=== PATIENT | female | born 1990 | race African-American/Black ===

== ENCOUNTER 2017-05-19 12:14 | Emergency (ER) | payer OTHER ==
[~2017-05-19] VITALS: Ht 170.2 cm; Wt 57.5 kg
[~2017-05-19 12:14] MED LIST: BACTRIM,SEPT1 TABLET PO; FLEXERIL10 MG PO; MOTRIN600 MG PO; NORCO 5/3251 TABLET PO; VALTREX1000 MG PO
[2017-05-19 12:59] LABS: HEMATOCRIT 38.3 % (36.0-46.0); MCH 31.7 PG (29.0-34.0); MCHC 34.5 G/DL (30.0-36.0); MCV 92.1 FL (83-99); PLATELET COUNT 164 K/uL (156-360); RBC DIS.WIDTH-CV 11.6 % (11.8-14.6); RBC DIS.WIDTH-SD 39.4 % (39-53); RED BLOOD COUNT 4.16 M/uL (3.80-5.20); WHITE BLOOD COUNT 7.1 K/uL (4.1-10.2)
[2017-05-19 13:09] LABS: CHLORIDE 105 mEq/L (99-109); POTASSIUM 4.3 mEq/L (3.7-5.4); SODIUM 138 mEq/L (136-147)
[2017-05-19 13:11] LABS: GLUCOSE 84 mg/dL (70-99)
[2017-05-19 13:12] LABS: ANION GAP 9 MEQ/L (2-14)
[2017-05-19 13:14] LABS: SERUM ETHYL ALCOHOL < 10 mg/dL
[2017-05-19 13:15] LABS: GFR ESTIMATE (CALCULATED) > 59 mL/min/; UREA NITROGEN (BUN) 9 mg/dL (9-23)
[2017-05-19 16:16] LABS: ADD MEDTOX COMMENT Y; AMPHETAMINE NEGATIVE (500 ng/mL); BARBITURATES NEGATIVE (200 ng/mL); BENZODIAZEPINES NEGATIVE (150 ng/mL); COCAINE NEGATIVE (150 ng/mL); INTERNAL CONTROLS VALID? YES; METHADONE NEGATIVE (200 ng/mL); METHAMPHETAMINE NEGATIVE (500 ng/mL); OPIATES (MORPHINE) NEGATIVE (100 ng/mL); OXYCODONE NEGATIVE (100 ng/mL); PHENCYCLIDINE NEGATIVE (25 ng/mL); PROPOXYPHENE NEGATIVE (300 ng/mL); THC CANNABINOIDS PRESUMPTIVE POSITIVE (50 ng/mL); TRICYCLIC ANTIDEPRESSANTS NEGATIVE (300 ng/mL)
[2017-05-19 16:39] VITALS: BP 116/77
== END 2017-05-19 16:39 | disposition home or self-care (01) ==
LOC: EME 12:14
DX: F41.1 Generalized anxiety disorder (principal); F12.10 Cannabis abuse, uncomplicated; F43.23 Adjustment disorder with mixed anxiety and depressed mood; R51 Headache; M54.9 Dorsalgia, unspecified; R07.9 Chest pain, unspecified; R20.0 Anesthesia of skin; Z85.41 Personal history of malignant neoplasm of cervix uteri; Z87.891 Personal history of nicotine dependence
CPT/HCPCS: 80048; 84999; 85027; 90839; 99281; 99284; G0480